=== PATIENT | male | born 1925 | race Caucasian/White ===

== ENCOUNTER → 2016-09-10 | Outpatient (CLI) | payer MEDICARE ==
[2016-09-10 09:43] LABS: ANION GAP 16.7 MEQ/L (3-15)
== END ==
LOC: LAB 08:59
PROVIDERS: ATTEND Family Medicine
DX: I50.32 Chronic diastolic (congestive) heart failure (principal)
CPT/HCPCS: 36415; 80048; 83880

== ENCOUNTER → 2016-11-26 | Outpatient (CLI) | payer MEDICARE ==
[~2016-11-26] MED LIST: ASP81CT PO; CHOL200018 PO; CRV6.25T PO; DUTA0.5C PO; FNST5T PO; HALO15OI4 TP; HYDR4TAB21 PO; LEVO50TA10 PO; LORA10CA PO; MULT1TAB PO; SMV20T PO; SPRN25T PO; TAMS0.4C2 PO
[2016-11-26 09:09] LABS: BASOPHILS % (AUTO) 1 % (0-2); EOSINOPHILS # (AUTO) 0.5 10^3uL; EOSINOPHILS % (AUTO) 6 % (0-4); LYMPHOCYTES # (AUTO) 1.2 X10^3; MEAN CORPUSCULAR HGB CONC 33.1 g/dL (31.0-37.0); MEAN PLATELET VOLUME 8.6 FL (6.0-9.5); MONOCYTES # (AUTO) 1.2 X10^3; MONOCYTES % (AUTO) 14 % (3-11); NEUTROPHILS # (AUTO) 5.8 X10^3; NEUTROPHILS % (AUTO) 66 % (51-67); PLATELET COUNT 239 10^3uL (150-450); WHITE BLOOD COUNT 8.87 10^3uL (4.0-11.0)
[2016-11-26 09:13] LABS: BILIRUBIN,URINE Negative (Negative); CLARITY,URINE Clear; COLOR,URINE Yellow; GLUCOSE, URINE (UA) Negative (Negative); LEUKOCYTE ESTERASE ,URINE Negative (Negative); PH,URINE 5.5 (5.0 - 8.0); UROBILINOGEN,URINE 0.2 mg/dL (0.2-1.0)
[2016-11-26 09:20] LABS: MEAN CORPUSCULAR HEMOGLOBIN 32.7 PG (26.0-34.0); MEAN CORPUSCULAR VOLUME 99 FL (80-100)
[2016-11-26 09:37] LABS: ALBUMIN 4.3 g/dL (3.4-5.0); ANION GAP 15.5 MEQ/L (3-15); TOTAL PROTEIN 7.9 g/dL (6.4-8.5)
== END ==
LOC: LAB 08:55
PROVIDERS: ATTEND Family Medicine
DX: E03.8 Other specified hypothyroidism (principal); I50.32 Chronic diastolic (congestive) heart failure; N18.2 Chronic kidney disease, stage 2 (mild)
CPT/HCPCS: 36415; 80053; 81003; 83880; 84443; 85025